=== PATIENT | male | born 1945 | race Two or more races ===

== ENCOUNTER 2018-11-25 13:07 | Emergency (ER) | payer SELFPAY ==
[~2018-11-25] VITALS: Ht 185.4 cm; Wt 72.3 kg
[2018-11-25 14:49] LABS: ALBUMIN 3.5 g/dL (3.4-5.0); ANION GAP 4 mmol/L (5-15); BASOPHILS # (AUTO) 0.03 x10^3/uL (0-0.1); BASOPHILS % (AUTO) 1 % (0-1); CALCIUM 8.7 mg/dL (8.5-10.1); CHLORIDE 109 mmol/L (98-107); CREATININE 1.26 mg/dL (0.7-1.3); EOSINOPHILS # (AUTO) 0.36 x10^3/uL (0-0.4); EOSINOPHILS % (AUTO) 5 % (1-7); LYMPHOCYTES # (AUTO) 1.89 x10^3/uL (1-3.4); LYMPHOCYTES % (AUTO) 28 % (22-44); MD NO; MEAN CORPUSCULAR HEMOGLOBIN 29.4 pg (27.5-34.5); MEAN CORPUSCULAR HGB CONC 32.8 g/dL (33.2-36.2); MEAN CORPUSCULAR VOLUME 89.5 fL (81-97); MEAN PLATELET VOLUME 7.7 fL (7.4-10.4); MONOCYTES # (AUTO) 0.42 x10^3/uL (0.2-0.8); MONOCYTES % (AUTO) 6 % (2-9); NEUTROPHILS # (AUTO) 4.07 x10^3/uL (1.8-6.8); NEUTROPHILS % (AUTO) 60 % (42-75); PLATELET COUNT 309 x10^3/uL (130-400); RED BLOOD COUNT 4.63 x10^6/uL (4.38-5.82); RED CELL DISTRIBUTION WIDTH 13.7 % (9.4-14.8)
--- NOTE | 2018-11-25 15:09 | NUR ---
Pt ambulated to room with this RN. Pt states labs have been drawn. Pt c/o constant pain to right lower extremity.
--- NOTE | 2018-11-25 15:51 | NUR ---
Dr. Leiva at bedside with doppler. Pedal pulses identified with doppler.
--- NOTE | 2018-11-25 15:58 | NUR ---
EDT at bedside for dressing on right ankle wound.
[2018-11-25 16:40] VITALS: BP 190/82
--- NOTE | 2018-11-25 16:41 | NUR ---
Patient/Caregiver given discharge instructions and they have confirmed that they understand the instructions. Patient ambulatory with steady gait.
== END 2018-11-25 16:52 | disposition home or self-care (01) ==
LOC: ED 16:46
DX: I70.238 Atherosclerosis of native arteries of right leg with ulceration of other part of lower leg (principal); L97.919 Non-pressure chronic ulcer of unspecified part of right lower leg with unspecified severity; I70.249 Atherosclerosis of native arteries of left leg with ulceration of unspecified site; J44.9 Chronic obstructive pulmonary disease, unspecified; I25.2 Old myocardial infarction
CPT/HCPCS: 36415; 80048; 82040; 85025; 99283

== ENCOUNTER 2019-04-13 07:48 | Outpatient (CLI) | payer SELFPAY | END 2019-04-13 23:59 | disposition home or self-care (01) | LOC: CVU 07:48 | PROVIDERS: ATTEND Surgery | DX: I83.219 Varicose veins of right lower extremity with both ulcer of unspecified site and inflammation (principal) | CPT/HCPCS: 93970 ==